=== PATIENT | male | born 1980 | race Caucasian/White ===

== ENCOUNTER 2021-11-16 21:12 | Emergency (ER) | payer BC, SELFPAY ==
[2021-11-16] VITALS (10 sets, daily range): BP systolic 126–143; BP diastolic 82–92; PULSE 55–84; RESP 13–24; TEMP 36.6; O2SAT 96–100
--- NOTE | ~2021-11-16 | XR_ITS ---
EXAMINATION: XR chest 2V Exam Date/Time: 11/16/2021 21:30 CDT HISTORY: pt reports heart fluttering x2wks. smoker . no cardiac hx Comparison: None available. RESULT: Lines, tubes, and devices: None. Lungs and pleura: Likely chronic mild bronchiolitis, otherwise clear. Cardiomediastinal silhouette: Normal. Other: No acute osseous or upper abdominal finding. IMPRESSION: No acute cardiopulmonary process. Reviewed, dictated and finalized at location K.
--- NOTE | ~2021-11-16 | CT_ITS ---
EXAMINATION: CT brain wo con DATE: 11/16/2021 22:39 INDICATION: headache, chronic, no previous imaging . TECHNIQUE: Computed tomography (CT) of the head was performed without intravenous contrast. The mA wa s adjusted according to patient size. Iterative reconstruction technique was employed. The dose-lengt h product was 605.33 mGy-cm. COMPARISON: None FINDINGS: No acute intracranial hemorrhage or extra-axial fluid collection. No hydrocephalus, mass, or herniation. No acute ischemic infarct. Unremarkable dural venous sinus attenuation. No acute osseous abnormality. Mucosal thickening with an air-fluid level in a suggestion of surrounding sclerosis in the right maxi llary sinus. Extension of some nodular appearing mucosal thickening into the ostiomeatal unit and mid dle ethmoid air cells on the right. The remaining aerated spaces are clear. IMPRESSION: No acute intracranial process. Paranasal sinus findings may represent acute on chronic right maxillar y sinusitis in the appropriate clinical context. Reviewed, dictated and finalized at location K. IMPRESSION: No acute intracranial process. Paranasal sinus findings may represent acute on chronic right maxillary sinusitis in the appropriate clinical context.
--- NOTE | 2021-11-16 21:14 | ECG_ITS ---
Measurements Intervals [place] Rate: 70 P: 68 NV: 149 QRS: 75 QRSD: 90 T: 69 QT: 361 QTc: 391 Interpretive Statements SINUS RHYTHM WITH OCCASIONAL ECTOPIC PREMATURE COMPLEXES NO PREVIOUS ECG AVAILABLE FOR COMPARISON Electronically Signed On 11-17-2021 14:14:46 CDT by Castro Stokes M.D.
[2021-11-16 21:41] LABS: Basophils Absolute Auto 0.1 K/mm3 (0.0-0.1); Basophils Percent Auto 1.2 % (0.2-1.2); Eosinophils Absolute Auto 0.3 K/mm3 (0-0.3); Hematocrit 44.8 % (42.0-52.0); Hemoglobin 15.1 g/dL (14.0-18.0); Immature Granulocyte Absolute 0.04 K/mm3 (0.00-0.031); Immature Granulocyte Percent A 0.4 % (0-0.5); Immature Platelet Fraction Pct 8.1 % (0.9-11.2); Lymphocytes Absolute Auto 3.77 K/mm3 (0.9-3.2); Lymphocytes Percent Auto 36.5 % (18.3-44.2); Mean Corpuscular HGB Conc 33.7 g/dl (32-36); Mean Corpuscular Hemoglobin 31.1 pg (26-34); Mean Corpuscular Volume 92.2 fl (80-100); Mean Platelet Volume 11.4 fl (7.4-10.4); Monocytes Absolute Auto 0.8 K/mm3 (0.1-0.6); Monocytes Percent Auto 7.4 % (2.6-8.5); Neutrophils Absolute Auto 5.3 K/mm3 (1.3-6.7); Neutrophils Percent Auto 51.5 % (45.5-73.1); Platelet Count Result 246 k/mm3 (150-375); Red Blood Count 4.86 M/mm3 (4.6-6.20); Red Cell Distribution Width 12.2 % (11.5-14.5); White Blood Count 10.3 K/mm3 (4.5-10.0)
[2021-11-16 21:47] LABS: Alanine Aminotransferase 33 U/L (6-50); Albumin Level 4.7 g/dL (3.5-5.1); Alkaline Phosphatase 51 U/L (38-126); Anion Gap 13 mmol/L (8-16); Aspartate Amino Transferase 37 U/L (17-59); Bilirubin,Total 0.5 mg/dL (0.2-1.3); Blood Urea Nitrogen 10 mg/dL (9-20); Calcium 9.4 mg/dL (8.4-10.2); Carbon Dioxide 24 mmol/L (22-30); Chloride 105 mmol/L (98-107); Estimated CRCL calculation 75 ml/min; Estimated Glomerular Filt Rate > 60; Glucose 112 mg/dL (65-110); Lipase 119 U/L (23-300); Potassium 3.6 mmol/L (3.4-5.0); Sodium 142 mmol/L (137-145)
[2021-11-16 21:49] LABS: INR 0.9
[2021-11-16 21:50] LABS: Partial Thromboplastin Time 26.2 SECONDS (22.3-36.8)
--- NOTE | 2021-11-16 21:55 | ED.CHESTPAIN ---
HPI - Chest Pain General Chief Complaint: Chest Pain Stated Complaint: palpations Time Seen by Provider: 11/16/21 21:54 Source: patient and family Mode of arrival: ambulatory Limitations: no limitations History of Present Illness HPI narrative: Patient is a 41-year-old male with no previous medical history presenting to the emergency department for evaluation of palpitations. Patient states that he has had intermittent palpitations over the past several weeks. He states that this evening he developed a slight chest pressure in conjunction with the palpitations. Patient describes this as a fluttering of his heart. Patient denies any jaw pain, neck pain, radiation of the pain to the back, shoulder, flanks. He denies ripping or tearing sensation. Pain lasted for only few moments before resolving. Patient is not sure if he has any history of hypertension or hyperlipidemia. States that he has not seen a primary care physician in over 20 years. He does have a smoking history. He does have a family history of coronary artery disease. Of note, patient also reports intermittent right-sided headaches over the past 2 years. Patient denies any current headache at the time of assessment. He reports it is sharp in nature when it occurs. States that he can typically massage the area and it goes away. He denies associated vision changes, nausea or vomiting. He denies unilateral weakness or numbness. No difficulty with ambulation. Related Data Allergies Allergy/AdvReac Type Severity Reaction Status Date / Time No Known Allergies Allergy Verified 11/16/21 22:13 Review of Systems Review of Systems: CONSTITUTIONAL: Denies fever, chills, or sweats. EYES: Denies visual changes, redness, or discharge. ENT: Denies rhinorrhea, congestion, sore throat, or otalgia. CARDIOVASCULAR: Denies current chest pain or palpitations, denies leg edema RESPIRATORY: Denies cough or dyspnea. GASTROINTESTINAL: Denies abdominal pain, nausea, vomiting, or diarrhea. GENITOURINARY: Denies dysuria or hematuria. SKIN: Denies rash or itching. MUSCULOSKELETAL: Denies back pain, joint pain, or myalgia. NEUROLOGIC: Denies current headache, reports history of intermittent headache, denies focal weakness or numbness PMFSH Social History Social History (Updated 11/16/21 @ 22:19 by Isha Pena MD) Smoking status: Current every day smoker Alcohol intake: current Alcohol use details: Former heavy alcohol use, beer only. Drinks on Sundays only now. Living arrangements: with family Occupation/Education: occupation Additional occupation/education comments: bingo worker Gender identity (if verbalized by the patient): Male Exam Narrative: GENERAL: Awake, alert, conversant HEAD: Normocephalic, atraumatic. EYES: PERRLA and EOMI. ENT: Nares clear, no rhinorrhea or epistaxis. Mucous membranes moist. NECK: Supple. CHEST: No respiratory distress, breathing even and non labored HEART: Regular rate, sinus rhythm ABDOMEN:Non distended, non tender EXTREMITIES: Normal range of motion. No edema. SKIN: Warm, dry, no rash. NEURO:No focal deficits. Alert and oriented x3. Finger to nose intact bilaterally. EOMs intact without nystagmus. No facial droop/asymmetry noted bilaterally. Grimace intact. Intact sensation in face. Hearing intact bilaterally. Shoulder shrug intact. Strength 5/5 bilateral upper extremities. Strength 5/5 bilateral lower extremities. Reflexes 2+ patellar. Heel to cain intact bilaterally. Ambulatory with a narrow base, steady gait. Course Vital Signs Vital signs: Vital Signs Temperature 36.6 C 11/16/21 21:19 Pulse Rate 84 11/16/21 21:19 Respiratory Rate 16 11/16/21 21:19 Blood Pressure 143/82 H 11/16/21 21:19 Pulse Oximetry 100 11/16/21 21:19 Oxygen Delivery Room Air 11/16/21 21:19 Temperature 36.6 C 11/16/21 21:19 Pulse Rate 62 11/17/21 01:15 Respiratory Rate 19 11/17/21 01:15 Blood Pressure 113/84 1
[2021-11-16 21:59] LABS: Troponin I < 0.012 ng/mL (0.000-0.034)
[2021-11-16] MEDS: ASPIRIN 81 MG CHEWABLE TABLET 324 MG PO (23:01)
[2021-11-17] VITALS (7 sets, daily range): BP systolic 111–113; BP diastolic 73–84; PULSE 52–64; RESP 16–22; O2SAT 96–99
[2021-11-17 00:58] LABS: Troponin I < 0.012 ng/mL (0.000-0.034)
== END 2021-11-17 01:53 | disposition home or self-care (01) ==
PROVIDERS: Emergency Provider Emergency Medicine
DX: R07.89 Other chest pain (principal); J32.9 Chronic sinusitis, unspecified; F17.200 Nicotine dependence, unspecified, uncomplicated; R94.31 Abnormal electrocardiogram [ECG] [EKG]
CPT/HCPCS: 36415; 70450; 71046; 80053; 83690; 84484; 85025; 85055; 85610; 85730; 93005; 99284; A9270

== ENCOUNTER 2022-12-01 09:40 | Outpatient (CLI) | payer BC, SELFPAY ==
[2022-12-01 10:59] LABS: Hemoglobin A1C 5.3 % (<5.7)
== END 2022-12-01 09:41 | disposition home or self-care (01) ==
PROVIDERS: PCP Family Medicine; Visit Provider Internal Medicine
DX: R00.2 Palpitations (principal)
CPT/HCPCS: 36415; 83036; 84443